=== PATIENT | male | born 1960 | race Caucasian/White ===

== ENCOUNTER 2017-07-14 12:44 | Outpatient (CLI) | payer BC ==
[2012-09-22 09:37] VITALS: O2SAT 95
== END 2017-07-14 12:45 | disposition home or self-care (01) ==
LOC: CONVCARE 12:44
PROVIDERS: ATTEND Orthopaedic Surgery
DX: M19.072 Primary osteoarthritis, left ankle and foot (principal); M77.32 Calcaneal spur, left foot; S92.042 Displaced other fracture of tuberosity of left calcaneus
CPT/HCPCS: 76000